=== PATIENT | female | born 1990 | race Caucasian/White ===

== ENCOUNTER 2017-05-23 10:07 | Emergency (ER) | payer SELFPAY ==
[~2017-05-23] VITALS: Ht 157.5 cm; Wt 51.4 kg
[2017-05-23 10:35] LABS: URINE HCG NEGATIVE (NEG)
[2017-05-23 10:40] LABS: BASOPHILS % (AUTO) 0.1 % (0-1); EOSINOPHILS % (AUTO) 0.3 % (0-6); HEMATOCRIT 42.8 % (35.0-45.0); HEMOGLOBIN 15.3 g/dl (12.0-16.0); LYMPHOCYTES # (AUTO) 0.8 X10'3 (1.1-4.8); LYMPHOCYTES % (AUTO) 8.8 % (21-51); MEAN CORPUSCULAR HEMOGLOBIN 33.5 PG (27.0-31.0); MEAN CORPUSCULAR HGB CONC 35.6 % (33.0-36.5); MEAN PLATELET VOLUME 7.6 FL (7.4-10.4); MONOCYTES # (AUTO) 0.4 X10'3 (0-0.9); NEUTROPHILS # (AUTO) 8.1 X10'3 (1.8-7.7); NEUTROPHILS % (AUTO) 86.8 % (42-75); PLATELET COUNT 249 X10'3 (140-440); RED BLOOD COUNT 4.56 X10'6 (4.20-5.60); RED CELL DISTRIBUTION WIDTH 12.8 % (11.5-14.5); WHITE BLOOD COUNT 9.4 X10'3 (4.5-11.0)
[2017-05-23] MEDS ORDERED: normal saline 1000ML IV soln IVB ONE (10:40)
[2017-05-23] MEDS ORDERED: ondansetron/PF 4mg/2ml inj IV ONE (10:40)
[2017-05-23] MEDS ORDERED: HYDROmorphone 1 mg/ml syringe IV PRN (10:40)
[2017-05-23 10:46] LABS: CLARITY,URINE CLEAR (Clear); COLOR,URINE YELLOW (Yellow); GLUCOSE, URINE NEGATIVE (Neg); KETONES,URINE >=80 mg/dl (Neg); LEUKOCYTE ESTERASE ,URINE NEGATIVE (Neg); NITRITES, URINE NEGATIVE (Neg); OCCULT BLOOD,URINE NEGATIVE (Neg); PROTEIN,URINE 30 mg/dl (Neg)
[2017-05-23 10:49] LABS: PROTHROMBIN TIME 10.3 SECONDS (9.0-12.0)
[2017-05-23 10:50] LABS: UA COLLECTION TYPE CLN CATCH MIDSTREAM
[2017-05-23 10:51] LABS: BACTERIA,URINE FEW /HPF (Neg); MUCUS STRANDS MODERATE /LPF (Neg); RBC,URINE NONE SEEN /HPF (0-2); SQUAMOUS EPITHELIAL CELL,UR MODERATE /LPF (FEW); WBC,URINE NONE SEEN /HPF (0-4)
[2017-05-23 10:56] LABS: ALANINE AMINOTRANSFERASE 20 U/L (12-78); ALBUMIN 4.1 G/DL (3.4-5.0); ALKALINE PHOSPHATASE 66 IU/L (46-116); ANION GAP 12 (8-16); ASPARTATE AMINO TRANSFERASE 23 U/L (10-37); BILIRUBIN,TOTAL 0.4 MG/DL (0.1-1.0); BLOOD UREA NITROGEN 9 MG/DL (7-18); BUN/CREATININE RATIO 12.9 (6.6-38.0); CALCIUM 8.8 MG/DL (8.5-10.1); CHLORIDE 103 MMOL/L (99-107); GLUCOSE 108 MG/DL (70-104); LIPASE 74 U/L (73-393); POTASSIUM 3.1 MMOL/L (3.5-5.1); SODIUM 141 MMOL/L (135-145); TOTAL CARBON DIOXIDE 25.9 MMOL/L (24-32); TOTAL PROTEIN 8.4 G/DL (6.4-8.2); eGFR > 90 ML/MIN
[2017-05-23] MEDS ORDERED: ONDA8TAB9 PO (13:04)
[2017-05-23] MEDS ORDERED: potassium Cl 20 mEq SR tablet PO ONE (13:20)
[2017-05-23 13:28] VITALS: BP 107/68
== END 2017-05-23 13:29 | disposition home or self-care (01) ==
LOC: ER 10:07
DX: R11.2 Nausea with vomiting, unspecified (principal); R10.13 Epigastric pain; R05 Cough; R06.7 Sneezing; F17.200 Nicotine dependence, unspecified, uncomplicated; Z88.8 Allergy status to other drugs, medicaments and biological substances; Z79.899 Other long term (current) drug therapy
CPT/HCPCS: 36415; 80053; 81001; 81025; 83690; 85025; 85610; 87502; 87503; 96361; 96374; 96375; 99284; J1170; J2405; J7030

== ENCOUNTER 2020-09-30 11:35 | Emergency (ER) | payer MEDICAID, OTHER ==
[~2020-09-30] VITALS: Ht 157.5 cm; Wt 54.5 kg
[~2020-09-30 11:35] MED LIST: ONDA8TAB9 PO
[2020-09-30 12:34] LABS: CLARITY,URINE SLIGHTLY CLOUDY (Clear); COLOR,URINE YELLOW (Yellow); GLUCOSE, URINE NEGATIVE (Neg); KETONES,URINE NEGATIVE (Neg); LEUKOCYTE ESTERASE ,URINE NEGATIVE (Neg); NITRITES, URINE NEGATIVE (Neg); OCCULT BLOOD,URINE NEGATIVE (Neg); PH,URINE 8.5 (4.8-8.0); PROTEIN,URINE TRACE mg/dl (Neg); UROBILINOGEN,URINE 0.2 E.U/dL (0.2-1.0)
[2020-09-30 12:36] LABS: URINE HCG NEGATIVE (NEG)
[2020-09-30 12:38] LABS: UA COLLECTION TYPE CLN CATCH MIDSTREAM
[2020-09-30 12:39] LABS: BACTERIA,URINE FEW /HPF (Neg); MUCUS STRANDS FEW /LPF (Neg); RBC,URINE NONE SEEN /HPF (0-2); SQUAMOUS EPITHELIAL CELL,UR MANY /LPF (FEW); WBC,URINE 0-4 /HPF (0-4)
[2020-09-30 13:05] LABS: BASOPHILS # (AUTO) 0.1 X10'3 (0-0.2); BASOPHILS % (AUTO) 0.6 % (0-1); EOSINOPHILS % (AUTO) 0.1 % (0-6); HEMATOCRIT 41.8 % (35.0-45.0); HEMOGLOBIN 13.7 g/dl (12.0-16.0); LYMPHOCYTES # (AUTO) 1.1 X10'3 (1.1-4.8); LYMPHOCYTES % (AUTO) 7.3 % (21-51); MEAN CORPUSCULAR HEMOGLOBIN 31.3 PG (27.0-31.0); MEAN CORPUSCULAR HGB CONC 32.8 g/dL (33.0-36.5); MEAN CORPUSCULAR VOLUME 95.4 FL (78-98); MEAN PLATELET VOLUME 6.8 FL (7.4-10.4); MONOCYTES # (AUTO) 0.5 X10'3 (0-0.9); MONOCYTES % (AUTO) 3.5 % (2-12); NEUTROPHILS # (AUTO) 13.5 X10'3 (1.8-7.7); NEUTROPHILS % (AUTO) 88.5 % (42-75); PLATELET COUNT 493 X10'3 (140-440); RED BLOOD COUNT 4.39 X10'6 (4.20-5.60); RED CELL DISTRIBUTION WIDTH 14.6 % (11.5-14.5); WHITE BLOOD COUNT 15.3 X10'3 (4.5-11.0)
[2020-09-30 13:33] LABS: ALANINE AMINOTRANSFERASE 22 U/L (12-78); ALBUMIN 3.6 G/DL (3.4-5.0); ALBUMIN/GLOBULIN RATIO 0.8 (1.1-1.5); ALKALINE PHOSPHATASE 93 IU/L (46-116); ANION GAP 7 (8-16); ASPARTATE AMINO TRANSFERASE 19 U/L (10-37); BILIRUBIN,TOTAL 0.3 MG/DL (0.1-1.0); BLOOD UREA NITROGEN 10 MG/DL (7-18); BUN/CREATININE RATIO 14.7 (6.6-38.0); CALCIUM 8.6 MG/DL (8.5-10.1); CHLORIDE 102 MMOL/L (99-107); CREATININE 0.68 MG/DL (0.40-0.90); GLUCOSE 98 MG/DL (70-104); LIPASE 76 U/L (73-393); POTASSIUM 4.2 MMOL/L (3.5-5.1); SODIUM 139 MMOL/L (135-145); TOTAL CARBON DIOXIDE 29.6 MMOL/L (24-32); TOTAL PROTEIN 7.9 G/DL (6.4-8.2); eGFR > 90 ML/MIN
[2020-09-30] MEDS ORDERED: ketorolac tromethamine 15mg/ml inj. IV ONE (13:35)
[2020-09-30] MEDS ORDERED: ondansetron 4mg rapidly disintigrating tab PO ONE (13:40)
[2020-09-30] MEDS ORDERED: iohexol 300mg/ml 100ml inj. ONE (16:40)
[2020-09-30] MEDS ORDERED: DOXY100C76 PO (17:21)
[2020-09-30] MEDS ORDERED: METR500T PO (17:21)
[2020-09-30] MEDS ORDERED: CefTRIAXone 1000mg IM Kit (w/lidocaine diluent) IM STA (17:22)
[2020-09-30 17:38] VITALS: BP 107/74
== END 2020-09-30 17:40 | disposition home or self-care (01) ==
LOC: ER 11:35
DX: R10.32 Left lower quadrant pain (principal); Z98.890 Other specified postprocedural states; Z90.49 Acquired absence of other specified parts of digestive tract; Z88.8 Allergy status to other drugs, medicaments and biological substances; Z79.899 Other long term (current) drug therapy
CPT/HCPCS: 36415; 74177; 76830; 76856; 80053; 81001; 81025; 83690; 85025; 87210; 87491; 87591; 93976; 96372; 96374; 99285; J0696; J1885; Q9967

== ENCOUNTER 2021-03-05 23:09 | Emergency (ER) | payer MEDICAID, OTHER ==
[~2021-03-05] VITALS: Ht 157.5 cm; Wt 54.5 kg
[2021-03-05 23:56] LABS: HEMOGLOBIN 13.2 g/dl (12.0-16.0)
[2021-03-05 23:57] LABS: BASOPHILS # (AUTO) 0.1 X10'3 (0-0.2); BASOPHILS % (AUTO) 1.4 % (0-1); EOSINOPHILS # (AUTO) 0.1 X10'3 (0-0.9); EOSINOPHILS % (AUTO) 1.7 % (0-6); HEMATOCRIT 38.1 % (35.0-45.0); LYMPHOCYTES # (AUTO) 2.4 X10'3 (1.1-4.8); LYMPHOCYTES % (AUTO) 28.1 % (21-51); MEAN CORPUSCULAR HEMOGLOBIN 32.6 PG (27.0-31.0); MEAN CORPUSCULAR HGB CONC 34.6 g/dL (33.0-36.5); MEAN CORPUSCULAR VOLUME 94.4 FL (78-98); MEAN PLATELET VOLUME 6.8 FL (7.4-10.4); MONOCYTES # (AUTO) 0.7 X10'3 (0-0.9); MONOCYTES % (AUTO) 8.6 % (2-12); NEUTROPHILS # (AUTO) 5.1 X10'3 (1.8-7.7); NEUTROPHILS % (AUTO) 60.2 % (42-75); PLATELET COUNT 448 X10'3 (140-440); RED BLOOD COUNT 4.04 X10'6 (4.20-5.60); RED CELL DISTRIBUTION WIDTH 14.2 % (11.5-14.5); WHITE BLOOD COUNT 8.5 X10'3 (4.5-11.0)
[2021-03-06 00:02] LABS: ALANINE AMINOTRANSFERASE 27 U/L (12-78); ALBUMIN 3.4 G/DL (3.4-5.0); ALBUMIN/GLOBULIN RATIO 0.8 (1.1-1.5); ALKALINE PHOSPHATASE 87 IU/L (46-116); ANION GAP 8 (8-16); ASPARTATE AMINO TRANSFERASE 20 U/L (10-37); BILIRUBIN,TOTAL 0.1 MG/DL (0.1-1.0); BLOOD UREA NITROGEN 9 MG/DL (7-18); BUN/CREATININE RATIO 10.8 (6.6-38.0); CALCIUM 8.6 MG/DL (8.5-10.1); CHLORIDE 107 MMOL/L (99-107); CREATININE 0.83 MG/DL (0.40-0.90); GLUCOSE 58 MG/DL (70-104); POTASSIUM 3.3 MMOL/L (3.5-5.1); SODIUM 144 MMOL/L (135-145); TOTAL CARBON DIOXIDE 29.5 MMOL/L (24-32); TOTAL PROTEIN 7.7 G/DL (6.4-8.2); eGFR 80 ML/MIN
[2021-03-06 00:02] LABS: URINE AMPHETAMINE SCREEN POSITIVE (Neg); URINE BARBITUATE SCREEN NEGATIVE (Neg); URINE BENZODIAZEPINES SCREEN NEGATIVE (Neg); URINE CANNABINOID SCREEN POSITIVE (Neg); URINE COCAINE SCREEN NEGATIVE (Neg); URINE METHADONE SCREEN NEGATIVE (Neg); URINE OPIATE SCREEN NEGATIVE (Neg); URINE PHENCYCLIDINE SCREEN NEGATIVE (Neg)
[2021-03-06 00:23] VITALS: BP 125/75
[2021-03-06] MEDS ORDERED: cefuroxime axetil 250mg tablet PO ONE (01:20)
[2021-03-06] MEDS ORDERED: TETanus/Pertussis (Acell)/Diphther VAC/PF (Tdap-Adult) 0.5ml syringe IMVAC ONE (01:20)
[2021-03-06] MEDS ORDERED: ondansetron 4mg rapidly disintigrating tab PO ONE (01:20)
[2021-03-06] MEDS ORDERED: clindamycin 150mg capsule PO ONE (01:20)
[2021-03-06] MEDS ORDERED: CLIN150C8 PO (01:23)
[2021-03-06] MEDS ORDERED: CEFU250T95 PO (01:23)
== END 2021-03-06 01:57 | disposition home or self-care (01) ==
LOC: ER 23:10
DX: S41.151A Open bite of right upper arm, initial encounter (principal); R20.2 Paresthesia of skin; R20.0 Anesthesia of skin; F12.90 Cannabis use, unspecified, uncomplicated; Z79.899 Other long term (current) drug therapy; Z79.2 Long term (current) use of antibiotics; Z90.49 Acquired absence of other specified parts of digestive tract; Z88.8 Allergy status to other drugs, medicaments and biological substances; W54.0XXA Bitten by dog, initial encounter; Y93.89 Activity, other specified; Y92.89 Other specified places as the place of occurrence of the external cause; Y99.8 Other external cause status
CPT/HCPCS: 36415; 71045; 80053; 80305; 83880; 84484; 85025; 90471; 90715; 93005; 99285

== ENCOUNTER 2021-10-19 15:12 | Emergency (ER) | payer MEDICAID ==
[~2021-10-19] VITALS: Ht 157.5 cm; Wt 63.6 kg
[~2021-10-19 15:12] MED LIST changes: +CLIN150C8 PO
[2021-10-19 15:31] VITALS: BP 118/83
[2021-10-19] MEDS ORDERED: ketorolac tromethamine 15mg/ml inj. IM ONE (15:50)
== END 2021-10-19 16:33 | disposition home or self-care (01) ==
LOC: ER 15:13
DX: M25.571 Pain in right ankle and joints of right foot (principal); M79.89 Other specified soft tissue disorders; W22.8XXA Striking against or struck by other objects, initial encounter; Y93.89 Activity, other specified; Y92.89 Other specified places as the place of occurrence of the external cause; Y99.8 Other external cause status
CPT/HCPCS: 73610; 96372; 99283; J1885; L4360

== ENCOUNTER 2021-11-12 21:31 | Emergency (ER) | payer MEDICAID ==
[~2021-11-12] VITALS: Ht 157.5 cm; Wt 59.1 kg
[2021-11-12 21:40] VITALS: BP 129/80
== END 2021-11-12 23:06 | disposition left against medical advice (07) ==
LOC: ER 21:32
DX: M79.10 Myalgia, unspecified site (principal); R51.9 Headache, unspecified; Z53.21 Procedure and treatment not carried out due to patient leaving prior to being seen by health care provider

== ENCOUNTER 2022-01-13 22:02 | Emergency (ER) | payer MEDICAID ==
[~2022-01-13] VITALS: Ht 157.5 cm; Wt 57.7 kg
[2022-01-13 22:07] VITALS: BP 124/75
[2022-01-13] MEDS ORDERED: TETanus/Pertussis (Acell)/Diphther VAC/PF (Tdap-Adult) 0.5ml syringe IMVAC ONE (22:50)
== END 2022-01-13 23:18 | disposition home or self-care (01) ==
LOC: ER 22:02
DX: S91.312A Laceration without foreign body, left foot, initial encounter (principal); F12.10 Cannabis abuse, uncomplicated; Z88.5 Allergy status to narcotic agent; Z79.899 Other long term (current) drug therapy; Z90.49 Acquired absence of other specified parts of digestive tract; W22.8XXA Striking against or struck by other objects, initial encounter; Y93.89 Activity, other specified; Y92.89 Other specified places as the place of occurrence of the external cause; Y99.8 Other external cause status
CPT/HCPCS: 12001; 12002; 90471; 90715; 99283

== ENCOUNTER 2022-09-04 04:02 | Emergency (ER) | payer MEDICAID ==
[~2022-09-04] VITALS: Ht 160 cm; Wt 65.0 kg
[2022-09-04 04:20] VITALS: BP 133/74
[2022-09-04] MEDS ORDERED: triamcinolone acetonide 40mg/ml inj IM ONE (04:20)
[2022-09-04] MEDS ORDERED: dexamethasone 4mg/ml inj IM ONE (04:20)
== END 2022-09-04 04:38 | disposition home or self-care (01) ==
LOC: ER 04:03
DX: L23.7 Allergic contact dermatitis due to plants, except food (principal); F12.10 Cannabis abuse, uncomplicated; Z88.8 Allergy status to other drugs, medicaments and biological substances; Z79.899 Other long term (current) drug therapy
CPT/HCPCS: 96372; 99284; J1100; J3301

== ENCOUNTER 2024-02-11 02:10 | Emergency (ER) | payer MEDICAID ==
[~2024-02-11] VITALS: Ht 160 cm; Wt 62.2 kg
[~2024-02-11 02:10] MED LIST changes: +CLIN-214 PO; -CLIN150C8 PO
[2024-02-11] MEDS ORDERED: TRIA15CR61 TOP (02:45)
[2024-02-11 02:52] VITALS: BP 105/69; PULSE 102; RESP 16; TEMP 97.8; O2SAT 99
== END 2024-02-11 02:49 | disposition home or self-care (01) ==
LOC: ER 02:11
DX: L23.9 Allergic contact dermatitis, unspecified cause (principal); R21 Rash and other nonspecific skin eruption; F12.90 Cannabis use, unspecified, uncomplicated; Z88.8 Allergy status to other drugs, medicaments and biological substances; Z79.2 Long term (current) use of antibiotics; Z79.899 Other long term (current) drug therapy; Z90.49 Acquired absence of other specified parts of digestive tract
CPT/HCPCS: 99283

== ENCOUNTER 2024-03-18 20:39 | Emergency (ER) | payer MEDICAID ==
[~2024-03-18] VITALS: Ht 160 cm; Wt 61.4 kg
[2024-03-18] MEDS: ketorolac trometh 15mg/ml vial 15 MG/ML ML IM STA (21:29)
[2024-03-18] MEDS ORDERED: IBUP-1984 PO (22:22)
[2024-03-18] MEDS ORDERED: NIRM1TAB9 PO (22:22)
[2024-03-18] MEDS: NIRMATRELVIR/RITONAVIR 300/100mg - 1 EACH TAB.DS.PK PO ONE (22:57)
[2024-03-18] MEDS: acetaminophen 325mg tablet PO ONE ×2 (23:00→23:44)
[2024-03-18 23:47] VITALS: BP 121/72; PULSE 105; RESP 16; TEMP 99.3; O2SAT 96
[2024-03-19] MEDS ORDERED: NIRMATRELVIR/RITONAVIR 300/100mg - 1 EACH TAB.DS.PK PO SCH (08:00)
== END 2024-03-19 01:46 | disposition home or self-care (01) ==
LOC: ER 20:40
DX: U07.1 COVID-19 (principal); M79.10 Myalgia, unspecified site; F12.90 Cannabis use, unspecified, uncomplicated; M54.2 Cervicalgia; R51.9 Headache, unspecified; Z88.8 Allergy status to other drugs, medicaments and biological substances; Z90.49 Acquired absence of other specified parts of digestive tract; Z79.1 Long term (current) use of non-steroidal anti-inflammatories (NSAID); Z79.899 Other long term (current) drug therapy; V89.2XXA Person injured in unspecified motor-vehicle accident, traffic, initial encounter; Y93.89 Activity, other specified; Y92.89 Other specified places as the place of occurrence of the external cause; Y99.8 Other external cause status
CPT/HCPCS: 36415; 70450; 70490; 87502; 87503; 87811; 96372; 99285; J1885

== ENCOUNTER 2024-10-12 02:33 | Emergency (ER) | payer MEDICAID ==
[~2024-10-12] VITALS: Ht 160 cm; Wt 59.2 kg
[~2024-10-12 02:33] MED LIST changes: +NIRM1TAB9 PO
[2024-10-12] MEDS ORDERED: tetanus & diphtheria toxoid (Td) vaccine 0.5ml IMVAC ONE (03:00)
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
[2024-10-12] MEDS: LIDOcaine 1% W/epiNEPHrine 1:100,000 20ml vial SQ ONE ×2 (03:40→05:49)
[2024-10-12] MEDS: TETanus/Pertussis (Acell)/Diphther VAC/PF (Tdap-Adult) 0.5ml syringe IMVAC ONE (03:41)
--- NOTE | 2024-10-12 03:56 | RADIOLOGY REPORT ---
EXAM: CT CT HEAD INDICATION: FALL TECHNIQUE: CT of the head without intravenous contrast. Radiation Dose : 1. Head: CT Dose: CTDI volume is 71.73 mGy. Dose-length product is 1225.07 mGy*cm The dose indicators for CT are the volume Computed Tomography (CT) Dose Index (CTDIvol) and the Dose Length Product (DLP), and are measured in units of mGy and mGy-cm, respectively. These indicators are not patient dose, but values generated from the CT scanner acquisition factors. The report includes radiation exposure data for exposures received during this examination. COMPARISON: CT CT HEAD on DOS: 03/18/24 FINDINGS: There is no evidence of acute intracranial hemorrhage, extra-axial collection, mass effect, midline s hift, herniation or hydrocephalus. The ventricles, sulci and cisterns are age appropriate. The clancy-white differentiation is intact. The visualized paranasal sinuses and mastoid air cells are clear. The surrounding soft tissues and osseous structures are unremarkable. IMPRESSION: 1. No acute intracranial abnormality. Radiation optimization: All CT scans at this facility use at least one of these dose optimization kai hniques: automated exposure control mA and/or kV adjustment per patient size (includes targeted exam s where dose is matched to clinical indication) or iterative reconstruction.
--- NOTE | 2024-10-12 03:59 | RADIOLOGY REPORT ---
CLINICAL INDICATION: swelling/pain following fall TECHNIQUE: DI WRIST, COMPLETE (3VW MIN) Comparison: None FINDINGS/IMPRESSION: : There is no evidence of acute fracture or dislocation. Soft tissues are unremarkable.
--- NOTE | 2024-10-12 04:03 | RADIOLOGY REPORT ---
HISTORY: fall TECHNIQUE: Nonenhanced axial images through the facial bones with coronal and sagittal MPR. Radiation Dose Information: CT Dose: CTDI volume is 27.42 mGy. Dose-length product is 497.22 mGy*cm COMPARISON: None FINDINGS: Mandible: Unremarkable Maxilla: Unremarkable Zygomatic arches: Unremarkable Nasal bone: Unremarkable Orbits: Unremarkable Sinuses: Clear Facial swelling: Moderate left facial and pre maxillary soft tissue swelling and edema. IMPRESSION: 1. No acute facial fractures. Moderate left facial and pre maxillary soft tissue swelling and edema. Radiation optimization: All CT scans at this facility use at least one of these dose optimization kai hniques: automated exposure control mA and/or kV adjustment per patient size (includes targeted exam s where dose is matched to clinical indication) or iterative reconstruction.
--- NOTE | 2024-10-12 05:13 | RADIOLOGY REPORT ---
EXAM: CT CT CERVICAL SPINE HISTORY: trauma COMPARISON: CT CT CERVICAL SPINE on DOS: 03/18/24 CTDIvol 48 mGy, DLP 777 mGy*cm. TECHNIQUE: Multiple axial CT images of the spine were obtained using bone algorithm. Axial and medina l reformatting was done. Bone and soft tissue windows were reviewed. FINDINGS: No evidence of definite acute fracture, spinal dislocation, or significant appearing acute subluxatio n is seen. IMPRESSION: No definite CT evidence of acute fracture or dislocation of the bony cervical spine.
[2024-10-12] MEDS: HYDROcodone/acetaminophen 10/325mg tab PO ONE (05:50)
[2024-10-12 06:09] VITALS: BP 108/66; PULSE 89; RESP 22; TEMP 98.1; O2SAT 100
== END 2024-10-12 06:12 | disposition home or self-care (01) ==
LOC: ER 02:34
DX: S01.112A Laceration without foreign body of left eyelid and periocular area, initial encounter (principal); S01.81XA Laceration without foreign body of other part of head, initial encounter; S63.592A Other specified sprain of left wrist, initial encounter; F12.90 Cannabis use, unspecified, uncomplicated; Z90.49 Acquired absence of other specified parts of digestive tract; Z88.8 Allergy status to other drugs, medicaments and biological substances; Z79.899 Other long term (current) drug therapy; W18.39XA Other fall on same level, initial encounter; Y93.55 Activity, bike riding; Y92.89 Other specified places as the place of occurrence of the external cause; Y99.8 Other external cause status
CPT/HCPCS: 12011; 70450; 70486; 72125; 73110; 90471; 90715; 99285; A6449

== ENCOUNTER 2024-10-19 23:20 | Emergency (ER) | payer MEDICAID ==
[~2024-10-19] VITALS: Ht 157.5 cm; Wt 59.7 kg
--- NOTE | 2024-10-19 23:39 | Physician Documentation ---
History of Present Illness ~ Chief Complaint: Suture Removal Stated Complaint: STICH REMOVAL OK to notify your PCP?: Yes Primary Medical Doctor: None Source: patient Mode of Arrival: POV Exam Limitations: no limitations HPI 33-year-old female presents with healing laceration to left eyebrow with [address] She states she got the stitches 7 days ago and it is time for removal. No signs or symptoms of infection. Tetanus within 5 years?: No Medication Reconciliation Allergies: Coded Allergies: prednisone (Verified Allergy, Unknown, 02/11/24) Scheduled Clindamycin HCl (Clindamycin HCl CAPSULE), 2 CAP PO TID Nirmatrelvir/Ritonavir (Paxlovid 300-100 mg Dose Pack), 3 TAB PO BID Ondansetron (Zofran Odt), 1 TAB PO Q8H Past Medical History Past Medical History: No Pertinent History Past Surgical History: abdominal surgery, appendectomy Alcohol Use: None Drug Use: marijuana Lives with: Family Lives In: Home Occupation: employed Review of Systems All Other Systems at this time: Reviewed and Negative Physical Exam Vital Signs: RN Vital Signs have been reviewed: Yes, Temperature: 98.6, Source: Temporal, Heart Rate: 90, Respiratory Rate: 16, BP: 165/90, Pulse Oximetry: 99, Weight: 59.700 Oxygen Flow Rate: 0 Pulse Oximetry Reflects: adequate oxygenation Physical Exam General: Alert, no distress. HEENT: No injection, moist mucous membranes. Neck: Full range of motion. Respiratory: No respiratory distress, equal chest rise and fall. Chest: No accessory muscle use. Cardiovascular: Regular rate and rhythm. Gastrointestinal: Nondistended. Extremities: Normal range of motion, no deformity. Neurologic: Oriented x4. Psychiatric: Normal mood and affect. Skin: Normal color, warm and dry. Three sutures in place to left eyebrow. Procedures Procedures Removed 3 stitches to left eyebrow, patient tolerated well. No signs or symptoms of infection from site, wound is healing well. Medical Decision Making Additional info obtained from: old records Findings 33-year-old female presents for suture removal. She got 7 days ago 3 stitches to the left eyebrow. She has no signs or symptoms of infection. Wound is healing well. She should return back here for any new or worsening symptoms. Departure Disposition: 01 HOME / SELF CARE / HOMELESS Impression: Primary Impression: Encounter for removal of sutures Additional Impression: Wound Condition: Stable Discharge Instructions: Suture Removal, Care After Additional Instructions: Monitor for signs or symptoms of infection. Return back here for any new or worsening symptoms. Referrals: NO PRIMARY CARE PROVIDER (PCP) Education Educated: Patient Educated regarding: diagnosis, treatment, prognosis, need for follow up Signature Scribe Signature: . Attestation: Scribed for Emergency,Department by Nina Rincon - HEBER . 10/19/24 23:39 Parts of this note were created using [employer] voice recognition software program. While efforts were made to correct any mistakes made by this voice recognition software program, nonsensical phrases may remain in this note. In addition, there may be errors and syntax, grammar, content and spelling. NINA [facility] Oct 19, 2024 23:39
[2024-10-19 23:48] VITALS: BP 162/89; PULSE 89; RESP 18; TEMP 98.6; O2SAT 99
== END 2024-10-19 23:49 | disposition home or self-care (01) ==
LOC: ER 23:21
DX: S01.112D Laceration without foreign body of left eyelid and periocular area, subsequent encounter (principal); F12.90 Cannabis use, unspecified, uncomplicated; Z88.8 Allergy status to other drugs, medicaments and biological substances; Z90.49 Acquired absence of other specified parts of digestive tract; X58.XXXD Exposure to other specified factors, subsequent encounter
CPT/HCPCS: 99281

== ENCOUNTER 2024-11-10 11:20 | Emergency (ER) | payer MEDICAID ==
[~2024-11-10] VITALS: Ht 157.5 cm; Wt 59.4 kg
[2024-11-10 11:29] VITALS: BP 122/77; PULSE 102; RESP 18; O2SAT 99
--- NOTE | 2024-11-10 13:02 | Physician Documentation ---
History of Present Illness ~ Chief Complaint: Fever Stated Complaint: FLU SYMPTOMS Time Seen by MD: 12:37 Primary Medical Doctor: None HPI Patient is a 34-year-old female that presents to the ED today for chief complaint of sore throat headache general lethargy x2 days. Patient denies any nausea vomiting or diarrhea at this time. Patient reports she has tried intermittent Tylenol and that has helped somewhat. She reports that her throat continues to feel worse and today feels like she has " swallowed razor blades". Patient denies nausea vomiting diarrhea. Patient's denies any other significant past medical history at this time. Medication Reconciliation Allergies: Coded Allergies: prednisone (Verified Allergy, Unknown, 10/19/24) Scheduled Amoxicillin Trihydrate* (Amoxicillin*), 1 CAP PO Q12H Clindamycin HCl (Clindamycin HCl CAPSULE), 2 CAP PO TID Nirmatrelvir/Ritonavir (Paxlovid 300-100 mg Dose Pack), 3 TAB PO BID Ondansetron (Zofran Odt), 1 TAB PO Q8H Past Medical History Past Medical History: No Pertinent History Past Surgical History: abdominal surgery, appendectomy Alcohol Use: None Drug Use: marijuana Lives with: Family Lives In: Home Occupation: employed Review of Systems Constitutional: Reports: chills, fever, malaise Eyes: Reports: no symptoms reported ENT: Reports: ear pain, throat pain Respiratory: Reports: no symptoms reported Cardiovascular: Reports: no symptoms reported Gastrointestinal: Reports: no symptoms reported Genitourinary: Reports: no symptoms reported Female Genitalia: Reports: no reported symptoms Neurological: Reports: no symptoms reported Musculoskeletal: Reports: no symptoms reported Integumentary: Reports: no symptoms reported Allergic/Immunologic: Reports: no symptoms reported Hematologic/Lymphatic: Reports: no symptoms reported Endocrine: Reports: no symptoms reported Psychiatric: Reports: no symptoms reported Physical Exam Vital Signs: Temperature: 98.4, Source: Temporal, Heart Rate: 102, Respiratory Rate: 18, BP: 122/77, Pulse Oximetry: 99, Weight: 59.350 Oxygen Flow Rate: 0 Physical Exam VITALS: Reviewed and as above. GENERAL: Alert, no apparent distress. HEENT: Normocephalic, atraumatic, PERRL, EOMI, dry mucosa, erythema and lympadenpathy noted to bilateral tonsils posterior oropharynx. Ears are without erythema or bulging to the TMs bilaterally. RESPIRATORY: Lungs clear, normal breath sounds, no respiratory distress. CHEST: No accessory muscle use, no retractions CV: Regular rate, rhythm, no edema, no murmur, No: JVD GI: Soft, non-tender, bowels sounds present, no rebound, guarding, or rigidity BACK: No CVA tenderness, or swelling MUSCULOSKELETAL No deformities, no edema SKIN: Warm and dry, no rash NEURO: Oriented x4, No motor or sensory deficit PSYCH: Normal mood and affect, no agitation Progress Results/Orders Reviewed/noted all lab results: Yes Results/Orders Vital Signs 11/10/24 11/10/24 11:29 14:08 Temp 98.4 98.4 Pulse 102 Resp 18 B/P (MAP) 122/77 Pulse Ox 99 O2 Flow Rate 0 Laboratory Tests Test 11/10/24 13:01 Group A Streptococcus Rapid Positive H Medical Decision Making Findings No history of immunocompromise. Nontoxic appearance. Patient euvolemic with no trismus. No airway compromise. No change in voice, patient does present with posterior oropharynx erythema in enlarged lymph nodes bilaterally. Able to tolerate PO. Given History and Exam I have low suspicion for this presentation being caused by [employer], RPA, Ludwigs angina, Epiglottitis or Bacterial Tracheitis, EBV, acute HIV. Patient's presentation consistent with strep pharyngitis. P ending sharp results has a returned positive. Sending the patient home with prescription of amoxicillin 500 mg b.i.d. times 10 days. Provided patient with instructions for return precautions and at home care. Differential Dx:Considerations: Include: Dehydration, UTI, Viral Syndrome Additional Comment DDx includes strep throat, viral pharyngitis Departure Disposition: HOME / SELF CARE / HOMELESS Impression: Primary Impression: Strep pharyngitis Condition: Stable Discharge Instructions: Rapid Strep Test, Strep Throat, Adult, [id number] Additional Instructions: Today you were diagnosed with strep pharyngitis. Please take all medications as prescribed. If you have any additional questions please call or reports your closest pharmacist for direction. Please take Tylenol ibuprofen as needed for discomfort. Increase your fluids and rest as needed. Please reports your primary care provider in 5-7 days. Return to the ER for any additional c oncerning symptoms or any red flag symptoms that we discussed here today Referrals: NO PRIMARY CARE PROVIDER (PCP) Prescriptions Amoxicillin Trihydrate* (Amoxicillin*) 500 Mg Capsule 1 CAP PO Q12H for 10 Days, #20 CAP Prov: TAMEKA IRVIN 11/10/24 Education Educated: Patient Educated regarding: diagnosis, treatment, prognosis, need for follow up Signature Scribe Signature: . Attestation: . TAMEKA IRVIN Nov 10, 2024 13:02 TREVOR PANDYA MD Nov 11, 2024 06:28
[2024-11-10 13:24] LABS: STREP A SCREEN POSITIVE (Neg)
[2024-11-10] MEDS ORDERED: AMOX500C2 PO (13:58)
[2024-11-10 14:08] VITALS: TEMP 98.4
== END 2024-11-10 14:10 | disposition home or self-care (01) ==
LOC: ER 11:20
DX: J02.0 Streptococcal pharyngitis (principal); F12.90 Cannabis use, unspecified, uncomplicated; Z90.49 Acquired absence of other specified parts of digestive tract; Z79.899 Other long term (current) drug therapy
CPT/HCPCS: 87880; 99283